=== PATIENT | female | born 1960 | race Caucasian/White ===

== ENCOUNTER → 2016-06-24 | Day surgery (SDC) | payer BC ==
[~2016-06-24] MED LIST: Acetaminophen TAB* 325 MG PO PRN; Buffered Lidocaine 1% SYR 3ML* 3 ML/SYR SYRINGE INTRADERM ONE; Buffered Lidocaine 1% SYR 3ML* 3 ML/SYR SYRINGE ONE; Bupivacaine 0.25% SDV* 30 ML ONE; Bupivacaine 0.5% SDV PF* 30 ML VIAL ONE; Dexamethasone IV* 4 MG/ML 1 ML (4 MG) IV SLOW PU ONE; Dexamethasone IV* 4 MG/ML 1 ML (4 MG) ONE; Famotidine IV* 10 MG/ML 2 ML (20 mg) IV ONE; Famotidine IV* 10 MG/ML 2 ML (20 mg) ONE; HYDROcodone/ACETAMIN 5-325 MG* 1 TAB ONE; HYDROcodone/ACETAMIN 5-325 MG* 1 TAB PO PRN; Ketorolac INJ* 30 MG/ML 1 ML VIAL ONE; Lidocaine 2% PF * 5 ML VIAL ONE; Ondansetron INJ* 2 MG/ML VIAL ONE; PROCHLORPERAZINE INJ 5 MG/ML 2 ML VIAL IV PRN; PROCHLORPERAZINE INJ 5 MG/ML 2 ML VIAL ONE; Propofol* 10 MG/ML 20 ML BTL IV PUSH ONE; ceFAZolin 2 GM PREMIX (*) 2 GM/50 ML BAG IVPB ONE; fentaNYL* 50 MCG/ML 2 ML VIAL (100 MCG VIAL) IV PRN; fentaNYL* 50 MCG/ML 2 ML VIAL (100 MCG VIAL) ONE
[2016-06-24 13:01] VITALS: BP 112/60
--- NOTE | 2016-06-26 05:47 | OP ---
OPERATIVE REPORT: DATE OF OPERATION: 06/24/16 DATE OF : 62 SURGEON: Jordon Quevedo MD FINANCIAL UNDERWRITER: ABHISHEK Hartley ANESTHESIOLOGIST: Dr. Gregg. ANESTHESIA: General. PRE-OP DIAGNOSES: 1. Left carpal tunnel syndrome. 2. Left cubital tunnel syndrome. POST-OP DIAGNOSES: 1. Left carpal tunnel syndrome. 2. Left cubital tunnel syndrome. OPERATIVE PROCEDURES: 1. Left carpal tunnel release. 2. Left in situ cubital tunnel release. INDICATIONS: Vidhi is a 55-year-old female. She has both clinical and electrodiagnostic evidence of left carpal tunnel syndrome and significant clinical evidence of left cubital tunnel syndrome. We talked about risks and benefits. She elected to proceed with surgery. COMPLICATIONS: None. EBL: 5 mL. FINDINGS: As expected. DESCRIPTION OF PROCEDURE: Vidhi was seen in the preoperative holding area and the correct site and side were marked. We came back to the operating room where anesthesia was induced. The arm was prepped and draped in the usual fashion and a formal time-out was performed. Incision was first made in the standard position of a carpal tunnel incision. Incision was about 2 to 3 cm. Incision was carried down to the skin and subcutaneous tissue. The transverse carpal ligament was identified. I then created a subcutaneous tunnel just ulnar to the palmaris longus tendon. I then went ahead and performed the release of the transverse carpal ligament just off the radial aspect of the hook of the hamate. The release was performed from distal to proximal. When I got to the level of the volar wrist of the proximal aspect of the incision, I placed a Angela retractor in the subcutaneous tunnel and retracted the skin and subcutaneous tissue superficially. Under direct visualization, I then went ahead and released the rest of the transverse carpal ligament and distal end of brachial fascia with the tenotomy scissors to the level about 4 to 5 cm proximal to the volar wrist flexion crease. I then went ahead and checked the decompression, and there was absolutely no compression on the median nerve proximally or distally. The superficial palmar arch was visualized. I then went ahead and irrigated the wound and closed it with some 4 -0 nylon suture. Attention was then turned to the posteromedial elbow where a standard cubital tunnel incision was made over Walden's ligament and extended 3 or 4 cm proximally and 3 or 4 cm distally. Dissection was carried down to the skin and subcutaneous tissue, and more distally care was taken to preserve the medial antebrachial cutaneous nerve which was identified and protected throughout the surgery. I then went ahead and I began my decompression on the ulnar nerve just proximal to Walden's ligament. The ulnar nerve was released and the fascia overlying the ulnar nerve was released proximally all the way up to the arcade of [place] which was released under direct visualization. I then went ahead and released Walden's ligament and more distally released the superficial FCU fascia followed by the FCU fibers and the subfascial layer was then released to complete the decompression. Of note, there was a significant area of indentation and compression noted in the ulnar nerve just under Walden' s ligament. I then checked the decompression proximally and distally and the entirety of the nerve was nicely decompressed. I flexed at the elbow, there was absolutely no signs of instability. I then went ahead and irrigated the wound and the subcutaneous tissue was approximated with 3-0 Polysorb suture and skin was closed with 4-0 nylon suture. Both incisions were then infiltrated with 0.25% Marcaine, and Xeroform and sterile dressings were applied. The patient was then woken up and taken to recovery room in stable condition. [id number] #: [id number] JAY
== END | disposition home or self-care (01) ==
LOC: OREAST 08:46
PROVIDERS: ATTEND Orthopaedic Surgery Hand Surgery
DX: G56.02 Carpal tunnel syndrome, left upper limb (principal); G56.22 Lesion of ulnar nerve, left upper limb; Z87.891 Personal history of nicotine dependence
CPT/HCPCS: J0690; J0780; J1100; J1885; J2405; J2704; J3010